=== PATIENT | female | born 1955 | race Caucasian/White ===

== ENCOUNTER 2016-12-02 18:19 | Emergency (ER) | payer OTHER ==
[2016-12-02 18:29] VITALS: BP 132/74
[2016-12-02] MEDS ORDERED: ALBUTEROL SULFATE/IPRATROPIUM 3 ML NEBU IH ONE ×2 (18:42→18:52)
[2016-12-02] MEDS ORDERED: METHYLPREDNISOLONE SOD SUCC/PF 40 MG/ML VIAL IM ONE (18:42)
[2016-12-02] MEDS ORDERED: AZITHROMYCIN 250 MG TABLET PO ONE (18:42)
--- NOTE | 2016-12-02 18:42 | ERNOTE ---
Date of Service: 12/02/16 Time Seen by Provider: 12/02/16 18:34 Stated Complaint: TEMP. LEG CRAMPING. CONGESTION Presenting Symptoms:: cough, sore throat Source: patient Immunizations: IMMUNIZATION HX Immunizations Up to Date Yes History of Influenza Vaccine No Hx Pneumococcal Vaccination No Allergies/Adverse Reactions: Allergies No Known Allergies Allergy (Verified 09/28/14 12:51) Home Medications: HOME MEDICATIONS Clopidogrel Bisulfate [Plavix] 75 mg PO DAILY #30 tab 10/23/14 [Last Taken Unknown] Lisinopril [Zestril] 10 mg PO HS 10/23/14 [Last Taken Unknown] Potassium Chloride [K-Dur] 20 meq PO DAILY #30 tab 10/23/14 [Last Taken Unknown] Albuterol Sulfate [Proair Hfa] 2 puff IH QID PRN #1 inhaler 12/02/16 [Last Taken Unknown] Azithromycin [Zithromax] 250 mg PO DAILY #5 tablet 12/02/16 [Last Taken Unknown] Chlorthalidone [Hygroton] 25 mg PO DAILY 12/02/16 [Last Taken Unknown] Cholecalciferol [Vitamin D] 2,000 unit PO DAILY 12/02/16 [Last Taken Unknown] Prednisone 50 mg PO DAILY #5 tablet 12/02/16 [Last Taken Unknown] Simvastatin 20 mg PO DAILY 12/02/16 [Last Taken Unknown] - History of Present Ilness Narrative: THE PATIENT COMES IN WITH COUGH AND CONGESTION, THAT HAS BEEN GOING FOR 2-3 DAYS , patient continues to smoke. She is having a productive cough. she has been having a purulent sputum. She denies any chest pain abdominal pain headache or dizziness. She says she has had a low-grade temperature but never documented by thermometer. Date (Duration): 11/30/16 Timing: intermittent Severity: mild Frequency/Possible Cause: Reports: frequent episodes Modifying Factors - Worsens: Reports: activity Associated Symptoms: Reports: cough, wheezing, nasal congestion, nasal drainage. Denies: chest pain/soreness, shortness of breath, dizziness, lightheadedness, earache, headache, fever/chills Review of Systems - Review of Systems Constitutional: Absent: fever, weakness, fatigue Respiratory: Present: cough. Absent: shortness of breath Cardiology: Absent: chest pain, palpitations Gastrointestinal/Abdominal: Absent: vomiting, diarrhea, constipation, abdominal pain Genitourinary: Absent: frequency Musculoskeletal: Absent: back pain Skin: Absent: dryness All Other Systems: All systems neg except as marked - Patient's Past Medical History Patient History - Medical: Anemia Patient History - Cardiac/Respiratory: COPD, CVA/Stroke, Hypertension, Hyperlipidemia Patient History - Cancer: No Hx of Cancer Patient History - Surgical Procedures: Cholecystectomy, Other - Social History Living Situations: home Smoking Status: Current every day smoker Patient requests Smoking Cessation Consult: No Initiate information on Smoking Cessation: No Alcohol Use: occasionally Drug Use: none Physical Exam - Physical Exam General Appearance: Present: wd/wn, alert, no apparent distress - pulses( Ears, Nose, Throat: Present: normal ENT inspection, normal pharynx - call Neck: Present: normal inspection, nontender Respiratory: Present: no respiratory distress, normal breath sounds, no accessory muscle use, chest nontender, lungs clear, decreased breath sounds, rhonchi - . He, wheezing Cardiovascular/Chest: Present: regular rate, rhythm, no murmur, normal peripheral pulses Gastrointestinal/Abdominal: Present: normal bowel sounds, nontender, nondistended, soft, no organomegaly - I do not vehicle come to the ER is started ER millimeters then and then maybe then centimeter jugular [employer] in good watch TV Extremity Exam: Present: normal inspection, non-tender, no edema Neurological Exam: Present: alert, oriented, normal mood/affect, no motor/ sensory deficits Skin Exam: Present: normal color, warm/dry Lymphatic Exam: Present: no adenopathy ED Progress - Vital Signs Patient's Vital Signs:: I have reviewed the patient's vital signs. Vital Signs: Vital Signs 12/02/16 18:26 Temperature 36.7 C Pulse Rate 92 Respiratory 18 Rate Blood Pressure 132/74 O2 Sat by Pulse 95 Oximetry - Progress/Reassessment Chief Complaint: Upper Respiratory Symptoms Progress:: Improved - Transfer of Care Expected Disposition: Discharge - .Face is a twice daily daily. Here given his of Departure - Departure Clinical Impression: Bronchitis, Cough Upper respiratory infection Qualifiers: URI type: unspecified viral URI Qualified Code(s): J06.9 - Acute upper respiratory infection, unspecified Disposition: Home Follow Up Needed Condition: Good Instructions: Upper Respiratory Infection, Adult, [id number], Acute Bronchitis Prescriptions: Albuterol Sulfate [Proair Hfa] 2 puff IH QID PRN #1 inhaler PRN Reason: Shortness Of Breath Azithromycin [Zithromax] 250 mg PO DAILY #5 tablet Prednisone 50 mg PO DAILY #5 tablet
[2016-12-02] MEDS ORDERED: METHYLPREDNISOLONE SOD SUCC/PF 40 MG/ML VIAL ONE (18:52)
[2016-12-02] MEDS ORDERED: AZITHROMYCIN 250 MG TABLET ONE (18:52)
== END 2016-12-02 19:13 | disposition home or self-care (01) ==
LOC: ER 18:19
DX: J40 Bronchitis, not specified as acute or chronic (principal); R05 Cough; F17.210 Nicotine dependence, cigarettes, uncomplicated